=== PATIENT | female | born 1965 | race Caucasian/White ===

== ENCOUNTER 2019-05-27 07:32 | Day surgery (SDC) | payer OTHER ==
[2019-05-27] MEDS ORDERED: FENTAnyl 50 MCG/ML VIAL (09:02)
[2019-05-27] MEDS ORDERED: SUCCINYLCHOLINE CHLORIDE 100 MG/5 ML SYG IV (09:02)
[2019-05-27] MEDS ORDERED: MIDAZOLAM 1 MG/ML 2 ML INJ (09:02)
[2019-05-27] MEDS ORDERED: PROPOFOL 20 ML ×2 (09:02→09:23)
[2019-05-27] MEDS ORDERED: LIDOCAINE 2% (SDV) 5 ML INJ (09:02)
[2019-05-27] MEDS ORDERED: ROCURONIUM 50 MG INJ (09:02)
[2019-05-27] MEDS ORDERED: ROPIVACAINE 0.5 % 30 ML VIAL (09:03)
[2019-05-27] MEDS ORDERED: DEXAMETHASONE 4 MG/ML 5 ML INJ (09:22)
[2019-05-27] MEDS ORDERED: ONDANSETRON 4 MG INJ (09:22)
[2019-05-27] MEDS ORDERED: CEFAZOLIN 1 GM INJ (09:22)
[2019-05-27] MEDS ORDERED: FAMOTIDINE 20 MG INJ (09:22)
[2019-05-27] MEDS: BUPIVACAINE 0.25% (MPF) 30 ML INJ (09:27)
[2019-05-27] MEDS ORDERED: EPHEDrine 25 MG/5 ML SYG (09:36)
[2019-05-27] MEDS ORDERED: GLYCOPYRROLATE 0.4 MG INJ ×2 (09:44)
[2019-05-27] MEDS ORDERED: NEOSTIGMINE 3 MG/3 ML SYRINGE ×2 (09:44)
[2019-05-27] MEDS ORDERED: KETOROLAC 30 MG INJ (09:45)
[2019-05-27] MEDS ORDERED: SUGAMMADEX SODIUM 200 MG/2 ML VIAL IV (09:47)
[2019-05-27] MEDS ORDERED: ONDANSETRON 4 MG INJ IV ×2 (10:00→10:30)
[2019-05-27] MEDS ORDERED: morphine 2 MG INJ IV (10:00)
[2019-05-27] MEDS ORDERED: OXYCODONE/ACETAMINOPHEN (5/325) TAB PO ×2 (10:00→10:30)
[2019-05-27] MEDS ORDERED: HYDROmorphONE 1 MG/5 ML IV SYRINGE IV ×3 (10:22→10:30)
[2019-05-27] MEDS ORDERED: FENTAnyl 50 MCG/ML VIAL IV ×3 (10:30)
[2019-05-27] MEDS ORDERED: LABETALOL HCL 20MG INJ IV (10:30)
[2019-05-27] MEDS ORDERED: hydrALAzine 20 MG INJ IV (10:30)
[2019-05-27] MEDS ORDERED: DIPHENHYDRAMINE 50 MG INJ IV (10:30)
[2019-05-27] MEDS ORDERED: MEPERIDINE 25 MG INJ IV (10:30)
[2019-05-27] MEDS ORDERED: PROCHLORPERAZINE 10 MG INJ IV (10:30)
[2019-05-27] MEDS: HYDROmorphONE 1 MG/5 ML IV SYRINGE IV (10:36)
[2019-05-27] MEDS: OXYCODONE/ACETAMINOPHEN (5/325) TAB PO ×2 (10:40→11:18)
== END 2019-05-27 12:20 | disposition home or self-care (01) ==
LOC: SDS 07:32
DX: K80.10 Calculus of gallbladder with chronic cholecystitis without obstruction (principal); I10 Essential (primary) hypertension
CPT/HCPCS: 47562; 84703; 88304